=== PATIENT | female | born 1955 | race Asian ===

== ENCOUNTER 2016-05-17 18:03 | Emergency (ER) | payer BC ==
[2016-05-17 18:21] VITALS: BMI 23.8
--- NOTE | 2016-05-17 20:35 | PDOC ---
History of Present Illness - History of Present Illness Initial Comments: 05/17/16 22:26 The patient is a 61 year old female, with a significant past medical history of IDDM and hyperlipidemia, who presents to the emergency department with constipation for 10 days with intermittent nausea and vomiting. She reports using colace and fleet enema with no relief of her constipation. She reports three episodes of vomiting today and one episode yesterday. She reports low urine output over the past few days and dizziness today. She reports constipation 3 weeks ago but was able to relieve herself after using magnesium citrate, however, denies using within the past 10 days because she states she was moving bowels and vomiting at the same time. She reports feeling a band- like tightness across the midsection of her abdomen, but denies any abdominal pain. She states she feels dehydrates at this time. She denies chest pain, shortness of breath, headache and dizziness. She denies fever, chills, nausea, vomit, diarrhea and constipation. She denies dysuria, frequency, urgency and hematuria. Allergies: NKDA Past surgical history: total hysterectomy (fibroids) Social history: denies toxic habits <Sarah Mares - Last Filed: 05/17/16 22:26> <Kena Weaver - Last Filed: 05/18/16 01:06> - General Chief Complaint: Constipation Stated Complaint: CONSTIPATED/VOMITING Time Seen by Provider: 05/17/16 18:52 Past History <Sarah Mares - Last Filed: 05/17/16 22:26> - Past Medical History Diabetes: Yes (IDDM) Hypercholesterolemia: Yes Suicide Attempt (Hx): No - Immunization History Immunization Up to Date: No - Psycho/Social/Smoking Cessation Hx Anxiety: No Suicidal Ideation: No Smoking History: Never smoked Have you smoked in the past 12 months: No Number of Cigarettes Smoked Daily: 0 Information on smoking cessation initiated: No Hx Alcohol Use: No Drug/Substance Use Hx: No Substance Use Type: None <Kena Weaver - Last Filed: 05/18/16 01:06> - Past Medical History Allergies/Adverse Reactions: Allergies Allergy/AdvReac Type Severity Reaction Status Date / Time No Known Allergies Allergy Verified 05/17/16 18:17 Home Medications: Ambulatory Orders Multivitamin [Poly-Vitamin] 1 each PO DAILY 11/05/14 Insulin (Novolog) [Novolog Flexpen] 0 units SQ ACHS 05/17/16 Polyethylene Glycol 3350 [Miralax (For Daily Use) -] 17 gm PO DAILY PRN #1 bottle 05/18/16 Sulfamethoxazole/Trimethoprim [Bactrim Ds -] 1 tab PO BID #14 tablet 05/18/16 Review of Systems - Review of Systems Able to Perform ROS?: Yes Comments:: 05/17/16 22:26 CONSTITUTIONAL: Absent: fever, chills, diaphoresis, generalized weakness, malaise, loss of appetite HEENT: Absent: rhinorrhea, nasal congestion, throat pain, throat swelling, difficulty swallowing, mouth swelling, ear pain, eye pain, visual Changes CARDIOVASCULAR: Absent: chest pain, syncope, palpitations, irregular heart rate, lightheadedness , peripheral edema RESPIRATORY: Absent: cough, shortness of breath, dyspnea with exertion, orthopnea, wheezing, stridor, hemoptysis GASTROINTESTINAL: (+) constipation, nausea, vomiting, Absent: abdominal pain, abdominal distension , diarrhea, melena, hematochezia GENITOURINARY: (+) decreased urinary output. Absent: dysuria,urgency, hesitancy, hematuria, flank pain, genital pain MUSCULOSKELETAL: Absent: myalgia, arthralgia, joint swelling SKIN: Absent: rash, itching, pallor HEMATOLOGIC/IMMUNOLOGIC: Absent: easy bleeding, easy bruising, lymphadenopathy, frequent infections ENDOCRINE: Absent: unexplained weight gain, unexplained weight loss, heat intolerance, cold intolerance NEUROLOGIC: (+) dizziness, Absent: headache, focal weakness or paresthesias, unsteady gait , seizure, mental status changes, bladder or bowel incontinence PSYCHIATRIC: Absent: anxiety, depression, suicidal or homicidal ideation, hallucinations. <Sarah Mares - Last Filed: 05/17/16 22:26> *Physical Exam - Vital Signs Last Vital Signs Temp Pulse Resp BP Pulse Ox 98.8 F 109 H 18 120/75 100 05/17/16 18:18 05/17/16 18:18 05/17/16 18:18 05/17/16 18:18 05/17/16 18:18 - Physical Exam Comments: 05/17/16 22:27 GENERAL: Well developed, well nourished. Awake and alert. No acute distress. HEENT: (+) Dry mucous membranes. Normocephalic, atraumatic. PERRLA, EOMI. No conjunctival pallor. Sclera are non-icteric. Oropharynx is clear. NECK: Supple. Full ROM. No JVD. Carotid pulses 2+ and symmetric, without bruits. No thyromegaly. No lymphadenopathy. CARDIOVASCULAR: (+) tachycardic with regulat rhythm. No murmurs, rubs, or gallops. Distal pulses are 2+ and symmetric. PULMONARY: No evidence of respiratory distress. Lungs clear to auscultation bilaterally. No wheezing, rales or rhonchi. ABDOMINAL: Soft. Non-tender. Non-distended. No rebound or guarding. No organomegaly. Normoactive bowel sounds. MUSCULOSKELETAL Normal range of motion at all joints. No bony deformities or tenderness. No CVA tenderness. EXTREMITIES: No cyanosis. No clubbing. No edema. No calf tenderness. SKIN: Warm and dry. Normal capillary refill. No rashes. No jaundice. NEUROLOGICAL: Alert, awake, appropriate. Cranial nerves 2-12 intact. Normoreflexic in the upper and lower extremities. Normal speech. Toes are down-going bilaterally. Gait is normal without ataxia. PSYCHIATRIC: Cooperative. Good eye contact. Appropriate mood and affect. <Sarah Mares - Last Filed: 05/17/16 22:26> - Vital Signs Last Vital Signs Temp Pulse Resp BP Pulse Ox 98.8 F 109 H 18 120/75 100 05/17/16 18:18 05/17/16 18:18 05/17/16 18:18 05/17/16 18:18 05/17/16 18:18 <Kena Weaver - Last Filed: 05/18/16 01:06> ED Treatment Course - LABORATORY CBC & Chemistry Diagram: 05/17/16 21:49 05/17/16 21:49 <Sarah Mares - Last Filed: 05/17/16 22:26> - LABORATORY CBC & Chemistry Diagram: 05/17/16 21:49 05/17/16 21:49 <Kena Weaver - Last Filed: 05/18/16 01:06> Medical Decision Making - Medical Decision Making 05/18/16 00:34 61 yo male p/w complaint of constipation, vomiting,dizziness -she vomited last night and today -no fever,no chills,no cough,no chest pain PT RECIEVED IV FLUIDS ,LEVAQUIN -she's IDDM and takes humulog and has hyperlipidemia -she has a long history of constipation and states she has been on colace and senna cxr napd KUB++stool pt given fleets enema, the stool in rectal vAult is soft,pt has a soft, nontender abd REVIEW of LABS -normal cbc -rqu=[id number], she's ACETONE NEGATIVE UA +++ wbcs,bacteris IMP; uti,CONSTIPATION PT GIVEN ANTIBIOTICS FOR UTI DISCHARGED HOME - <Kena Weaver - Last Filed: 05/18/16 01:06> *DC/Admit/Observation/Transfer - Attestations Scribe Attestion: 05/17/16 22:28 Documentation prepared by Sarah Mares, acting as medical auditor for Kena Weaver MD <Sarah Mares - Last Filed: 05/17/16 22:26> <Kena Weaver - Last Filed: 05/18/16 01:06> Diagnosis at time of Disposition: Insulin dependent diabetes mellitus Urinary tract infection Qualifiers: Urinary tract infection type: site unspecified Hematuria presence: without hematuria Qualified Code(s): N39.0 - Urinary tract infection, site not specified Constipation Qualifiers: Constipation type: unspecified constipation type Qualified Code(s): K59.00 - Constipation, unspecified - Discharge Dispostion Disposition: HOME Condition at time of disposition: Stable - Patient Instructions Printed Discharge Instructions: DI for Urinary Tract Infection (UTI), Type 1 Diabetes, DI for Constipation Additional Instructions: IT'S IMPORTANT TO FOLLOWUP WITH YOUR REGULAR PHYSICIAN THIS WEEK YOU NEED TO SCIENTIFIC SOFTWARE ENGINEER YOUR PRESCRIPTIONS AT THE [facility] LOCATED ON [place], [place]
[2016-05-17] MEDS ORDERED: ONDANSETRON 4 MG/2 ML VIAL IVPB ONE (20:49)
[2016-05-17] MEDS ORDERED: SODIUM CHLORIDE 1,000 ML IV STA (20:49)
[2016-05-17 22:22] LABS: BASOPHIL 0.8 % (0-2.0); EOSINOPHIL 1.3 % (0-4.5); MCH 28.2 pg (25.7-33.7); MCHC 33.8 g/dl (32.0-36.0); MEAN CELL VOLUME 83.4 fl (80-96); MEAN PLT VOLUME 8.5 fl (7.5-11.1); PLATELET COUNT 328 K/MM3 (134-434); WHITE BLOOD COUNT 6.9 K/mm3 (4.0-10.0)
[2016-05-17 22:25] LABS: URINE APPEARANCE TURBID; URINE BILIRUBIN NEGATIVE (NEGATIVE); URINE BLOOD NEGATIVE (NEGATIVE); URINE COLOR AMBER; URINE GLUCOSE (UA) NEGATIVE (NEGATIVE); URINE KETONE NEGATIVE (NEGATIVE); URINE NITRITE NEGATIVE (NEGATIVE); URINE UROBILINOGEN 2.0 E.U/dl E.U./dl (0.2-1.0)
[2016-05-17 22:36] LABS: ALBUMIN 3.6 g/dl (3.4-5.0); ANION GAP 9 (8-16); BILIRUBIN,TOTAL 0.3 mg/dL (0.2-1.0); CALCIUM 9.2 mg/dL (8.5-10.1); CO2 28 mmol/L (21-32); CREATININE 0.9 mg/dL (0.55-1.02); GLUCOSE,RANDOM 164 mg/dL (74-106); SGOT/AST 21 U/L (15-37); SGPT/ALT 21 U/L (12-78); TOT PROT 7.2 g/dl (6.4-8.2)
[2016-05-17 22:37] LABS: ALK PHOS 79 U/L (45-117)
[2016-05-17 22:41] LABS: URINE LEUK ESTERASE 2+ (NEGATIVE); URINE PROTEIN 2+ (NEGATIVE)
[2016-05-17 22:42] LABS: URINE HYALINE CAST 28 /lpf; URINE MUCUS MANY; URINE RBC 13 /hpf (0-3); URINE WBC 1167 /hpf (3-5)
[2016-05-18] MEDS ORDERED: LEVOFLOXACIN 500 MG TABLET (FP) PO ONE (00:21)
[2016-05-18] MEDS ORDERED: SODIUM PHOSPHATE/NA BIPHOS 133 ML ENEMA PR ONE (00:21)
[2016-05-18] MEDS ORDERED: LEVOFLOXACIN 500 MG TABLET (FP) ONE (00:31)
[2016-05-18 01:28] VITALS: BP 163/81; PULSE 110; TEMP 98.4
== END 2016-05-18 01:34 | disposition home or self-care (01) ==
LOC: JER 18:03
PROC: 3E033GC Introduction of Other Therapeutic Substance into Peripheral Vein, Percutaneous Approach (ICD-10-PCS; principal; 2016-05-17)
PROC: 3E0337Z Introduction of Electrolytic and Water Balance Substance into Peripheral Vein, Percutaneous Approach (ICD-10-PCS; 2016-05-17)
DX: K59.00 Constipation, unspecified (principal); N39.0 Urinary tract infection, site not specified
CPT/HCPCS: 36415; 71020-TC; 74000-TC; 80053; 81003; 81015; 82009; 83690; 85025; 99282-25

== ENCOUNTER 2016-10-28 15:00 | Emergency (ER) | payer BC ==
[2016-10-28 15:05] VITALS: BP 153/85; PULSE 125; TEMP 99.5; BMI 23.8
[2016-10-28] MEDS ORDERED: SODIUM CHLORIDE 1,000 ML IV STA (15:48)
--- NOTE | 2016-10-28 15:49 | PDOC ---
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 She reports that she is unable to bear weight because of the pain. She denies fevers/chills or any other systemic symptoms. she does have some callouses on her feet, most notably on the heel where it is partially open, but states these have been present for a long time. She denies any trauma to her foot. She notes that she twisted her ankle yesterday while walking her dog. V/s on arrival are notable for P 125. Patient states that this is normal for her and that she has been worked up for it thoroughly without significant findings. REVIEW OF SYSTEMS: GENERAL/CONSTITUTIONAL: No fever or chills. No weakness. No weight change. HEAD, EYES, EARS, NOSE AND THROAT: No change in vision. No ear pain or discharge. No sore throat. CARDIOVASCULAR: No chest pain or palpitations. RESPIRATORY: No cough, wheezing, or shortness of breath. GASTROINTESTINAL: No nausea, vomiting, diarrhea or constipation. GENITOURINARY: No dysuria, frequency, or change in urination. MUSCULOSKELETAL: Left foot pain and swelling limiting weight bearing. SKIN: Left foot redness. NEUROLOGIC: No headache, vertigo, loss of consciousness, or loss of sensation. PSYCHIATRIC: No depression or anxiety. ENDOCRINE: No increased thirst. No abnormal weight change. HEMATOLOGIC/LYMPHATIC: No anemia, easy bleeding, or history of blood clots. ALLERGIC/IMMUNOLOGIC: No hives or skin allergy. No latex allergy. PHYSICAL EXAM: GENERAL: The patient is awake, alert, and fully oriented, in no acute distress. HEAD: Normal with no signs of trauma. ENT: Pupils equal, round and reactive to light, extraocular movements intact, sclera anicteric, conjunctiva clear. Neck supple. LUNGS: Clear to auscultation bilaterally. Normal excursion. No respiratory distress or use of accessory muscles. CV: RRR, S1/S2, no MRG. Cap refill < 2 sec. ABDOMEN: Soft, non-distended, non-tender. EXTREMITIES: Normal range of motion. Left foot erythematous from mid-foot to ankle. Swollen with 2+ pitting pedal and pretibial edema. Mild calf tenderness. Foot diffusely tender without focal point. NEUROLOGICAL: Normal speech. CN II-XII grossly intact. PSYCH: Normal mood, normal affect. SKIN: Warm, dry, normal turgor. Partially open callous left heel. = Past History - Past Medical History Allergies/Adverse Reactions: Allergies Allergy/AdvReac Type Severity Reaction Status Date / Time No Known Allergies Allergy Verified 10/28/16 15:05 Home Medications: Ambulatory Orders Aspirin [ASA -] 81 mg PO DAILY 10/28/16 Cephalexin [Keflex] 500 mg PO Q6H #20 capsule 10/28/16 Cholecalciferol (Vitamin D3) [Vitamin D3] 50,000 unit PO MONTHLY 10/28/16 Ezetimibe [Zetia] 10 mg PO DAILY 10/28/16 Insulin (Levemir) [Levemir Flexpen -] 50 units SQ DAILY 10/28/16 Insulin Lispro [Humalog] 10 unit SQ TID 10/28/16 Lisinopril [Prinivil] 20 mg PO DAILY 10/28/16 Diabetes: Yes (IDDM) HTN: Yes Hypercholesterolemia: Yes Suicide Attempt (Hx): No - Immunization History Immunization Up to Date: No - Psycho/Social/Smoking Cessation Hx Anxiety: No Suicidal Ideation: No Smoking History: Never smoked Have you smoked in the past 12 months: No Number of Cigarettes Smoked Daily: 0 Hx Alcohol Use: No Drug/Substance Use Hx: No Substance Use Type: None *Physical Exam - Vital Signs Last Vital Signs Temp Pulse Resp BP Pulse Ox 99.5 F 125 H 18 153/85 100 10/28/16 15:02 10/28/16 15:02 10/28/16 15:02 10/28/16 15:02 10/28/16 15:02 ED Treatment Course - LABORATORY CBC & Chemistry Diagram: 10/28/16 16:10 10/28/16 16:10 - RADIOLOGY Radiology Studies Ordered: Category Date Time Status CHEST X-RAY PORTABLE* [RAD] Stat Radiology 10/28/16 15:48 Ordered FOOT-LEFT [RAD] Stat Radiology 10/28/16 15:48 Ordered DUPLEX VASCUL US-1 LEG [US] Stat Ultrasound 10/28/16 15:48 Ordered Medical Decision Making - Medical Decision Making 10/28/16 16:39 A/P: 61 year old insulin-dependent diabetic with non-traumatic left foot redness , swelling, and pain s/p eversion injury. 1. EKG (tachycardia) 2. Labs including CBC, comp, ESR/CRP 3. Xray left foot 4. Duplex u/s LLE 5. IVF 6. Declines analgesia WBC within normal limits at 7.0. U/s: No DVT. 10/28/16 17:00 Glucose 331 without elevated AG - 10 units regular insulin given. *DC/Admit/Observation/Transfer Diagnosis at time of Disposition: Ankle sprain Qualifiers: Encounter type: initial encounter Involved ligament of ankle: unspecified ligament Laterality: left Qualified Code(s): S93.402A - Sprain of unspecified ligament of left ankle, initial encounter - Discharge Dispostion Disposition: HOME - Prescriptions Prescriptions: Cephalexin [Keflex] 500 mg PO Q6H #20 capsule - Referrals Referrals: Geri Greene [Primary Care Provider] - - Patient Instructions Printed Discharge Instructions: DI for Ankle Sprain Additional Instructions: Please apply RICE therapy (rest, ice, compress, and elevate) to expedite the healing of your ankle sprain. Take 600 mg ibuprofen three times daily for the next 3-4 days to decrease inflammation. If your pain persists for over a week, please follow up with orthopedics for further evaluation and possible physical therapy. If you experience any loss of sensation, increased swelling, redness, or pain to your ankle, toes or feet, or you develop fever, chills, nausea, vomiting, or any new or worsening symptoms, please return to the ER.
[2016-10-28 16:30] LABS: BASOPHIL 0.5 % (0-2.0); EOSINOPHIL 1.6 % (0-4.5); MCH 28.6 pg (25.7-33.7); MCHC 33.3 g/dl (32.0-36.0); MEAN CELL VOLUME 85.7 fl (80-96); MEAN PLT VOLUME 8.4 fl (7.5-11.1); NEUTROPHILS 73.6 % (42.8-82.8); PLATELET COUNT 351 K/MM3 (134-434); RDW 13.8 % (11.6-15.6)
[2016-10-28 16:47] LABS: INR 0.98 (0.82-1.09); PROTHROMBIN TIME (PATIENT) 10.8 SEC (9.98-11.88)
[2016-10-28 16:55] LABS: ALBUMIN 3.7 g/dl (3.4-5.0); ANION GAP 7 (8-16); BILIRUBIN,TOTAL 0.4 mg/dL (0.2-1.0); CALCIUM 9.7 mg/dL (8.5-10.1); CO2 29 mmol/L (21-32); SGOT/AST 11 U/L (15-37); SGPT/ALT 23 U/L (12-78); TOT PROT 7.7 g/dl (6.4-8.2)
[2016-10-28 16:56] LABS: ALK PHOS 119 U/L (45-117)
[2016-10-28 16:59] LABS: GLUCOSE,RANDOM 331 mg/dL (74-106)
[2016-10-28] MEDS ORDERED: INSULIN REGULAR HUMAN 100 UNITS/ML *VIAL SQ ONE (17:00)
[2016-10-28] MEDS ORDERED: INSULIN REGULAR HUMAN 100 UNITS/ML *VIAL ONE (17:12)
--- NOTE | 2016-10-28 19:40 | PDOC ---
*Physical Exam - Vital Signs Last Vital Signs Temp Pulse Resp BP Pulse Ox 99.5 F 125 H 18 153/85 100 10/28/16 15:02 10/28/16 15:02 10/28/16 15:02 10/28/16 15:02 10/28/16 15:02 - Physical Exam Comments: 10/28/16 19:38 Sign-out received from outgoing ER provider Felecia. Pt interviewed and examined. Ancillary studies reviewed. Patient is a 61 yo F with a history of IDDM, HTN, and HLD with c/o of one day of left foot redness, swelling, and pain s/p eversion injury. Awaiting foot/ankle x-ray official read. 10/28/16 20:38 IMPRESSION: Lateral ankle soft tissue swelling suggestive of sprain. No acute fracture or dislocation is demonstrated. Underlying osteopenia seen. Read by: Ayah Bills MD -Crutches -Juan José bandage ED Treatment Course - LABORATORY CBC & Chemistry Diagram: 10/28/16 16:10 10/28/16 16:10 - ADDITIONAL ORDERS Additional order review: Laboratory Results 10/28/16 10/28/16 10/28/16 16:10 16:10 16:10 INR 0.98 Sodium 134 L Potassium 4.6 Chloride 98 Carbon Dioxide 29 Anion Gap 7 L BUN 15 D Creatinine 1.0 Creat Clearance w eGFR 56.75 Random Glucose 331 H* D Calcium 9.7 Total Bilirubin 0.4 D AST 11 L D ALT 23 Alkaline Phosphatase 119 H D Total Protein 7.7 Albumin 3.7 TSH 1.27 10/28/16 16:10 RBC 4.30 MCV 85.7 MCHC 33.3 RDW 13.8 MPV 8.4 Neutrophils % 73.6 D Lymphocytes % 18.3 D Monocytes % 6.0 Eosinophils % 1.6 Basophils % 0.5 - Medications Given in the ED: ED Medications Discontinued Medications Generic Name Dose Route Start Last Admin Trade Name Freq PRN Reason Stop Dose Admin Sodium Chloride 1,000 mls @ 1,000 mls/hr 10/28/16 15:48 10/28/16 16:24 Normal Saline - IV 10/28/16 16:47 1,000 mls/hr ASDIR STA Administration Insulin Human Regular 10 units 10/28/16 17:00 10/28/16 17:22 Novolin R Vial *For Ivpush Or Iv Drip Only* SQ 10/28/16 17:01 10 units ONCE ONE Administration *DC/Admit/Observation/Transfer Diagnosis at time of Disposition: Sprain of ankle Qualifiers: Encounter type: initial encounter Involved ligament of ankle: unspecified ligament Laterality: left Qualified Code(s): S93.402A - Sprain of unspecified ligament of left ankle, initial encounter - Discharge Dispostion Disposition: HOME Condition at time of disposition: Stable Admit: No - Prescriptions Prescriptions: Cephalexin [Keflex] 500 mg PO Q6H #20 capsule - Referrals Referrals: Geri Greene [Primary Care Provider] - - Patient Instructions Printed Discharge Instructions: DI for Ankle Sprain Additional Instructions: Please apply RICE therapy (rest, ice, compress, and elevate) to expedite the healing of your ankle sprain. Take 600 mg ibuprofen three times daily for the next 3-4 days to decrease inflammation. If your pain persists for over a week, please follow up with orthopedics for further evaluation and possible physical therapy. If you experience any loss of sensation, increased swelling, redness, or pain to your ankle, toes or feet, or you develop fever, chills, nausea, vomiting, or any new or worsening symptoms, please return to the ER.
[2016-10-28 20:04] LABS: C-REACTIVE PROTEIN 0.7 MG/DL (0.00-0.3)
[2016-10-28] MEDS ORDERED: IBUPROFEN 400 MG TABLET (FP) PO ONE (20:24)
[2016-10-28] MEDS ORDERED: IBUPROFEN 600 MG TABLET (FP) PO ONE (20:34)
[2016-10-29 01:38] LABS: ERYTHROCYTE SEDIMENTATION RATE 40 mm/hr (0-30)
--- NOTE | 2016-10-29 10:24 | EKG ---
Test Reason : Blood Pressure : / mmHG Vent. Rate : 119 BPM Atrial Rate : 119 BPM P-R Int : 134 ms QRS Dur : 072 ms QT Int : 304 ms P-R-T Axes : 060 -10 086 degrees QTc Int : 427 ms SINUS TACHYCARDIA POOR R WAVE PROGRESSION NO PREVIOUS ECGS AVAILABLE Confirmed by GISELL CRAIG MD ([id number]) on 10/29/2016 10:24:21 AM Referred By: Confirmed By:GISELL CRAIG MD
== END 2016-10-28 21:02 | disposition home or self-care (01) ==
LOC: JER 15:00
PROC: 3E0337Z Introduction of Electrolytic and Water Balance Substance into Peripheral Vein, Percutaneous Approach (ICD-10-PCS; principal; 2016-10-28)
PROC: 3E013VG Introduction of Insulin into Subcutaneous Tissue, Percutaneous Approach (ICD-10-PCS; 2016-10-28)
DX: S93.402A Sprain of unspecified ligament of left ankle, initial encounter (principal); I10 Essential (primary) hypertension; E78.5 Hyperlipidemia, unspecified; E11.9 Type 2 diabetes mellitus without complications; Z79.4 Long term (current) use of insulin; Z79.82 Long term (current) use of aspirin; L84 Corns and callosities; X58.XXXA Exposure to other specified factors, initial encounter; Y93.9 Activity, unspecified; Y92.9 Unspecified place or not applicable
CPT/HCPCS: 36415; 71010-TC; 73610-TC-LT; 73630-TC-LT; 80053; 84443; 85025; 85610; 85651; 86140; 87040; 93005; 93010; 93971-TC; 99283-25